=== PATIENT | male | born 1955 | race African-American/Black ===

== ENCOUNTER → 2018-05-09 | Outpatient (CLI) | payer MEDICARE, MEDICAID ==
[~2018-05-09] MED LIST: ATEN-42 PO; ATOR20TA65 PO; BENA10TA10 PO; FOLI-43 PO; HYDR-3927 PO; LEVE500T78 PO; PHEN300C6 PO; RANI150C12 PO
== END | disposition home or self-care (01) ==
LOC: CARD 09:53
PROVIDERS: ATTEND Psychiatry & Neurology Neurology
DX: I62.9 Nontraumatic intracranial hemorrhage, unspecified (principal); G40.802 Other epilepsy, not intractable, without status epilepticus

== ENCOUNTER → 2018-05-09 | Emergency (ER) | payer MEDICARE, MEDICAID | END | disposition home or self-care (01) | LOC: ER 09:55 | DX: Z53.21 Procedure and treatment not carried out due to patient leaving prior to being seen by health care provider (principal) | CPT/HCPCS: 99281 ==